=== PATIENT | male | born 1975 ===

== ENCOUNTER 2018-04-18 11:54 | Emergency (ER) | payer SELFPAY ==
[2018-04-18 14:08] LABS: BASO # 0.1 K/uL (0.0-0.2); BASO % 1.2 % (0.0-2.0); HEMOGLOBIN 14.8 g/dL (12.0-18.0); LYMPH # 1.2 K/uL (1.0-4.3); LYMPH % 25.7 % (20.0-40.0); MEAN CORPUSCULAR HEMOGLOBIN 33.3 pg (27.0-31.0); MEAN CORPUSCULAR HGB CONC 34.7 g/dL (33.0-37.0); MEAN PLATELET VOLUME 7.8 fL (7.2-11.7); MONO # 0.4 K/uL (0.0-0.8); MONO % 8.7 % (0.0-10.0); NEUT % 63.4 % (50.0-75.0); NRBC % 0.1 % (0.0-2.0); RBC 4.43 Mil/uL (4.40-5.90); WHITE BLOOD COUNT 4.7 K/uL (4.8-10.8)
[2018-04-18 14:34] LABS: ACETAMINOPHEN < 10.0 ug/mL (10.0-30.0); BLOOD UREA NITROGEN 9 mg/dL (9-20); CALCIUM 8.4 mg/dl (8.6-10.4); GFR NON-AFRICAN AMERICAN > 60; SALICYLATE < 1.0 mg/dL 1
[2018-04-18 14:57] LABS: ALB/GLOB RATIO 1.2 (1.0-2.1); ALT/SGPT 88 U/L (21-72); AST/SGOT 116 U/L (17-59)
[2018-04-18 15:55] LABS: URINE BACTERIA RARE (<OCC); URINE BILIRUBIN NEGATIVE (NEGATIVE); URINE BLOOD 1+ (NEGATIVE); URINE CLARITY Clear (Clear); URINE COLOR Straw (YELLOW); URINE GLUCOSE (UA) NORMAL (Normal); URINE LEUKOCYTE ESTERASE NEG Leu/uL (Negative); URINE PROTEIN 2+ mg/dL (NEGATIVE); URINE UROBILINOGEN NORMAL mg/dL (0.2-1.0)
[2018-04-18 16:09] LABS: BARBITURATES, UR NEGATIVE (NEGATIVE); BENZODIAZEPINES, UR NEGATIVE (NEGATIVE); OPIATES, UR NEGATIVE (NEGATIVE); PHENCYCLIDINE, UR NEGATIVE (NEGATIVE)
--- NOTE | 2018-04-18 16:27 | C.PDOC ---
History Of Present Illness 42 year old male presents to the ED via EMS for public intoxication. He admits to alcohol use today, denies drug use. Offers no medical complaints at this time. HPI is limited due to the patients intoxicated state. <Oumou Dutton - Last Filed: 04/18/18 20:48> History Per: Patient, EMS History/Exam Limitations: intoxication <Oumou Dutton - Last Filed: 04/18/18 20:48> <Macrina Eng - Last Filed: 04/19/18 02:18> Time Seen by Provider: 04/18/18 12:15 Chief Complaint (Nursing): Substance Abuse Past Medical History Reviewed: Historical Data, Nursing Documentation, Vital Signs Vital Signs: Last Vital Signs Temp 97.6 F 04/18/18 12:10 Pulse 81 04/18/18 12:10 Resp 18 04/18/18 12:10 BP 116/83 04/18/18 12:10 Pulse Ox 95 04/18/18 12:10 - Medical History PMH: No Chronic Diseases Family History: States: Unknown Family Hx - Social History Hx Alcohol Use: Yes Hx Substance Use: (unk) - Immunization History Hx Tetanus Toxoid Vaccination: (unk) Hx Influenza Vaccination: (unk) Hx Pneumococcal Vaccination: (unk) <Oumou Dutton - Last Filed: 04/18/18 20:48> Vital Signs: Last Vital Signs Temp 97 F L 04/19/18 02:00 Pulse 90 04/19/18 02:00 Resp 14 04/19/18 02:00 BP 119/78 04/19/18 02:00 Pulse Ox 97 04/19/18 02:00 <Macrina Eng - Last Filed: 04/19/18 02:18> Review Of Systems Except As Marked, All Systems Reviewed And Found Negative. (limited secondary to intoxication.) Constitutional: Negative for: Fever, Chills, Other (diaphoresis.) Eyes: Negative for: Vision Change Cardiovascular: Negative for: Chest Pain, Palpitations, Light Headedness Respiratory: Negative for: Cough, Shortness of Breath Gastrointestinal: Negative for: Nausea, Vomiting, Abdominal Pain Musculoskeletal: Negative for: Neck Pain, Back Pain Skin: Positive for: Rash (generalized eczema) Neurological: Negative for: Weakness, Numbness, Seizures, Dizziness Psych: Negative for: Anxiety, Depression, Suicidal ideation <Oumou Dutton - Last Filed: 04/18/18 20:48> Physical Exam - Physical Exam Appears: Non-toxic, No Acute Distress, Unkempt, Other (Intoxicated) Skin: Normal Color, Warm, Dry Head: Atraumatic, Normacephalic Eye(s): bilateral: Normal Inspection, PERRL, EOMI Ear(s): Bilateral: Normal Nose: Normal Oral Mucosa: Moist Neck: Normal ROM, Trachea Midline, Supple Chest: Symmetrical, No Deformity Cardiovascular: Rhythm Regular, No Murmur Respiratory: Normal Breath Sounds, No Rales, No Rhonchi, No Wheezing Gastrointestinal/Abdominal: Normal Exam, Bowel Sounds (normoactive), Soft, No Tenderness Back: Normal Inspection, No Vertebral Tenderness, No Decreased ROM, No Paraspinal Tenderness Extremity: Normal ROM (x4) Extremity: Bilateral: Atraumatic, No Pedal Edema, Normal Color And Temperature (Normal temperature; generalized eczema bilateral extremities), Normal ROM Pulses: Left Radial: Normal, Right Radial: Normal Neurological/Psych: Normal Motor, Normal Sensation Disoriented To: Place (Secondary to intoxication), Time (Secondary to intoxication) Gait: Unsteady <Oumou Dutton - Last Filed: 04/18/18 20:48> ED Course And Treatment - Laboratory Results Result Diagrams: 04/18/18 13:58 12 13:58 ECG: Viewed By Me (Reviewed by ED Physician Dr. Cole) ECG Rhythm: Sinus Rhythm, ST/T Changes (Inverted T waves III, avF; ST elevated V2-4) ECG Interpretation: No Changes From Prior O2 Sat by Pulse Oximetry: 95 (RA) Pulse Ox Interpretation: Normal <Oumou Dutton - Last Filed: 04/18/18 20:48> - Laboratory Results Result Diagrams: 04/18/18 13:58 04/18/18 13:58 Pulse Ox Interpretation: Normal Progress Note: pt ambulating without any difficulty. wants to go home Reevaluation Time: 02:18 Reassessment Condition: Improved <Macrina Eng - Last Filed: 04/19/18 02:18> Medical Decision Making Medical Decision Making: Initial Plan: -EKG CBC, CMP -Alcohol, Acetaminophen, Salicylate -UDS Urinalysis -Glucose POC Progress/Update: 16:15 On re-eval patient is alert and oriented x3. Patient was able to provide his name and date of . Denies chest pain, shortness of breath, diaphoresis, palpitations, abdominal pain, nausea, vomiting, back pain, fever, chills or any other associated symptoms. EKG was compared to prior EKG on 01/24/14, no acute changes from previous Case discussed with ED Attending Dr. Cole, who examined patient at bedside and agrees with impression and plan of care. Troponin negative at .02 19:00 Patient care transferred to Dr. Eng, pending sobriety, reassessment and disposition. Pt sleeping soundly in stretcher with stable vital signs at this time. <Oumou Dutton - Last Filed: 04/18/18 20:48> Disposition Discussed With : Itz Cole Doctor Will See Patient In The: ED - Disposition Disposition Time: 19:00 <Oumou Dutton - Last Filed: 04/18/18 20:48> Counseled Patient/Family Regarding: Studies Performed, Diagnosis <Macrina Eng - Last Filed: 04/19/18 02:18> - Disposition Disposition: HOME/ ROUTINE Condition: FAIR Instructions: Alcohol Abuse and Alcoholism (DC) - Clinical Impression Clinical Impression: Alcohol intoxication - PA / [employer] / Resident Statement MD/DO has reviewed & agrees with the documentation as recorded. - Scribe Statement The provider has reviewed the documentation as recorded by the Scribe (Raina Hickman) All medical record entries made by the Scribe were at my direction and personally dictated by me. I have reviewed the chart and agree that the record accurately reflects my personal performance of the history, physical exam, medical decision making, and the department course for this patient. I have also personally directed, reviewed, and agree with the discharge instructions and disposition. <Oumou Dutton - Last Filed: 04/18/18 20:48>
[2018-04-19 02:13] VITALS: BP 119/78; PULSE 90; RESP 14; TEMP 97; O2SAT 97
--- NOTE | 2018-04-19 23:52 | CARD ---
APPROVED REPORT Date of service: 04/18/2018 EKG Measurement Heart [id number] <Conclusion> Normal sinus rhythm Moderate voltage criteria for LVH, may be normal variant Nonspecific ST abnormality Abnormal ECG
== END 2018-04-19 02:20 | disposition home or self-care (01) ==
LOC: EDBD 11:54 → C.ER 11:54
DX: F10.129 Alcohol abuse with intoxication, unspecified (principal)
CPT/HCPCS: 80053; 81001; 82948; 84484; 85025; 87086; 93005; 99285; G0480